=== PATIENT | female | born 1955 | race Caucasian/White ===

== ENCOUNTER 2017-04-23 10:37 | Emergency (ER) | payer OTHER ==
--- NOTE | 2017-04-23 11:13 | Emergency Department Record ---
Anxiety - General Chief Complaint: Anxiety Stated Complaint: REACTION TO MED Time Seen by Provider: 04/23/17 11:00 Source: Patient Mode of Arrival: Ambulatory Limitations: No limitations - History of Present Illness Initial Comments: The patient is here due to not feeling well for 3 days since starting Lyrica. She was placed on the Lyrica by her PCP 4 days ago for Leg Neuropathy and Fibromyalgia. The 2nd day taking it she began to feel very restless and anxious. She also has had a mild TAYLOR but no nausea, vomiting, AP, fever or visual changes. The patient did initially go over to the but was brought to the ER for anxiety. MD Complaint: Anxiety Onset/Timin -: Days(s) Associated symptoms: Diaphoresis, Headaches, Other - Related Data Home Medications: Home Medications Medication Instructions Recorded Confirmed Last Taken Budesonide/Formoterol Fumarate 2 puff IH BID puff 02/14/17 04/23/17 04/23/17 [Symbicort 160-4.5 Mcg Inhaler] Docusate Sodium [Stool Softener] 100 mg PO QD PRN cap 02/14/17 04/23/17 Losartan Potassium 25 mg PO QD tab 02/14/17 04/23/17 04/23/17 Montelukast Sodium 10 mg PO QD tab 02/14/17 04/23/17 04/23/17 Omeprazole Magnesium [Prilosec] 20 mg PO QD PRN packet 02/14/17 04/23/17 Venlafaxine HCl [Effexor Xr] 300 mg PO QD cap 02/14/17 04/23/17 04/23/17 Allergies/Adverse Reactions: Allergies Allergy/AdvReac Type Severity Reaction Status Date / Time levofloxacin [From Levaquin] Allergy Severe ALTERED Unverified 02/21/17 14:35 MENTAL STATUS Travel Screening - Travel/Exposure Within Last 30 Days Have you traveled within the last 30 days?: No - Travel/Exposure Within Last Year Have you traveled outside the [place] in the last year?: No - Additonal Travel Details Have you been exposed to anyone with a communicable illness?: No - Travel Symptoms Symptom Screening: None Review of Systems Constitutional: Denies: Chills, Fever Eyes: Denies: Eye discharge ENT: Denies: Congestion, Throat pain Respiratory: Denies: Cough, Dyspnea Past Medical History - SOCIAL HISTORY Smoking Status: Former smoker Alcohol Use: Occassional Drug Use: None - RESPIRATORY Hx Respiratory Disorders: Yes Hx Asthma: Yes - CARDIOVASCULAR Hx Cardio Disorders: Yes Hx Hypertension: Yes - NEURO Hx Neuro Disorders: Yes Hx Neuropathy: Yes - GI Hx GI Disorders: No - Hx Genitourinary Disorders: No - ENDOCRINE Hx Endocrine Disorders: Yes Hx Diabetes: Yes (2) Hx Thyroid Disease: No - MUSCULOSKELETAL Hx Musculoskeletal Disorders: Yes Hx Arthritis: Yes - PSYCH Hx Psych Problems: Yes Hx Anxiety: Yes Hx Depression: Yes - HEMATOLOGY/ONCOLOGY Hx Hematology/Oncology Disorders: No Family Medical History Any Significant Family History?: No Physical Exam - General General Appearance: Alert, Oriented x3, Cooperative, No acute distress - Head Head exam: Atraumatic, Normocephalic, Normal inspection - Eye Eye exam: Normal appearance, PERRL - ENT Throat exam: Normal inspection. negative: Tonsillar erythema, Tonsillar exudate - Neck Neck exam: Normal inspection, Full ROM. negative: Tenderness - Respiratory Respiratory exam: Normal lung sounds bilaterally. negative: Respiratory distress - Cardiovascular Cardiovascular Exam: Regular rate, Normal rhythm, Normal heart sounds - GI/Abdominal GI/Abdominal exam: Soft, Normal bowel sounds. negative: Tenderness - Extremities Extremities exam: Normal inspection, Full ROM, Normal capillary refill. negative: Tenderness - Neurological Neurological exam: Alert, Normal gait. negative: Abnormal gait, Motor sensory deficit Course Vital Signs 04/23/17 10:38 Temperature 98.1 F Pulse Rate 73 Respiratory 24 Rate Blood Pressure 159/95 Pulse Ox 95 - Reevaluation(s) Reevaluation #1: The patient is doing much better at this time. Her anxiety is 90% gone now. She denies any suicidal thoughts or feelings and would like to go home. I explained to her that we will be providing her with a single Ativan for home and she is to stop the Lyrica and see her PCP later this week. 04/23/17 12:07 Medical Decision Making - Lab Data Result diagrams: 04/23/17 11:25 04/23/17 11:25 Disposition Disposition: Discharge Clinical Impression: Anxiety Disposition: Home, Self-Care Condition: (1) Good Instructions: Social Anxiety Disorder (ED) Additional Instructions: Please stop the Lyrica and take the single Ativan pill tonight as directed. Please see your PCP later this week for recheck and return to the ER if worse. Forms: Patient Portal Access Time of Disposition: 12:09
[2017-04-23] MEDS: LORAZEPAM 0.5 MG TABLET PO ONE ×2 (11:15→12:34)
[2017-04-23 11:30] LABS: BASO % 0.3 % (0-6); EOS % 2.1 % (0-6); GRAN % 67.6 % (47-80); HEMATOCRIT 43.6 % (35.0-47.0); HEMOGLOBIN 13.8 gm/dl (11.6-16.0); LYMPH % 23.3 % (16-45); MEAN CELL VOLUME 97.1 fl (81-97); MEAN CORPUSCULAR HEMOGLOBIN 30.7 pg (27-33); MEAN CORPUSCULAR HGB CONC 31.7 g/dl (32-36); MEAN PLATELET VOLUME 9.9 fl (7.4-10.4); MONO % 6.7 % (0-9); PLATELET COUNT 241 K/uL (130-400); RED BLOOD COUNT 4.49 M/uL (3.80-5.40); RED CELL DISTRIBUTION WIDTH 12.3 % (11.5-14.5); WHITE BLOOD COUNT W/O DIFF 10.4 K/uL (4.2-12.2)
[2017-04-23 11:42] LABS: ALB/GLOB RATIO 1.3 (1.1-1.8); ALBUMIN 4.1 gm/dL (3.5-5.0); ALKALINE PHOSPHATASE 89 U/L (38-126); ALT/SGPT 48 U/L (9-52); ANION GAP 7.1 (7-16); AST/SGOT 27 U/L (14-36); BLOOD UREA NITROGEN 16 mg/dL (7-17); CARBON DIOXIDE 26.9 mmol/L (22-30); CREATININE 0.6 mg/dL (0.52-1.04); EST GLOMERULAR FILTRATION RATE > 60 ml/min; GLUCOSE,RANDOM 158 mg/dL (70-110); TOTAL PROTEIN 7.2 gm/dL (6.3-8.2)
== END 2017-04-23 12:38 | disposition home or self-care (01) ==
LOC: ER 10:37
DX: T42.6X5A Adverse effect of other antiepileptic and sedative-hypnotic drugs, initial encounter (principal); M79.7 Fibromyalgia; F41.1 Generalized anxiety disorder
CPT/HCPCS: 80053; 85025; 99283

== ENCOUNTER 2017-11-03 01:14 | Emergency (ER) | payer OTHER ==
--- NOTE | 2017-11-03 01:33 | Emergency Department Record ---
History of Present Illness - General Chief Complaint: Alcohol Intoxication Stated Complaint: INTOXICATED Source: Patient, EMS Mode of Arrival: EMS Limitations: No limitations - History of Present Illness Initial Comments: 62 yo female presents to ED for evaluation of alcohol intoxication and ingestion of a marijuana capsule. Per the patient, she called EMS as she "thought she was dying" , however reports that she is feeling fine at this time. Patient drinks alcohol and takes a marijuana pill to help her sleep, denies any thoughts of self-harm on examination. Patient denies pain, focal weakness, or recent illness. Patient reports that she did vomit prior to arrival, however reports that she is feeling find at this time. Patient reports "I think I just overdid it tonight" by drinking too much. MD Complaint: Alcohol intoxication Last Drink: Unknown Chronic Alcohol Use: Yes Associated Symptoms: Denies other symptoms - Ryan Coma Scale Eye Response: (4) Open spontaneously Motor Response: (6) Obeys commands Verbal Response: (5) Oriented [place] Total: 15 - Related Data Allergies Allergy/AdvReac Type Severity Reaction Status Date / Time levofloxacin [From Levaquin] Allergy Severe ALTERED Verified 11/03/17 01:17 MENTAL STATUS pregabalin [From Lyrica] AdvReac Severe very Verified 11/03/17 01:17 anxious pramipexole di-HCl AdvReac Altered Verified 11/03/17 01:17 [From Mirapex] mental status Travel Screening - Travel/Exposure Within Last 30 Days Have you traveled within the last 30 days?: No - Travel Symptoms Symptom Screening: None Review of Systems Constitutional: Denies: Chills, Fever, Malaise, Night sweats Eyes: Denies: Eye discharge, Eye pain ENT: Denies: Congestion, Ear pain Respiratory: Denies: Cough, Dyspnea Cardiovascular: Denies: Chest pain, Dyspnea on exertion Endocrine: Denies: Fatigue, Heat or cold intolerance Gastrointestinal: Reports: Nausea, Vomiting. Denies: Abdominal pain Genitourinary: Denies: Incontinence, Retention Musculoskeletal: Denies: Arthralgia, Back pain Skin: Denies: Bruising, Change in color Neurological: Denies: Abnormal gait, Confusion, Headache, Seizure Psychiatric: Denies: Anxiety Hematological/Lymphatic: Denies: Anemia, Blood Clots Past Medical History - SOCIAL HISTORY Smoking Status: Former smoker Alcohol Use: Heavy Drug Use: Occasional Drug Use Detail:: Marijuana - RESPIRATORY Hx Respiratory Disorders: Yes Hx Asthma: Yes - CARDIOVASCULAR Hx Cardio Disorders: Yes Hx Hypertension: Yes - NEURO Hx Neuro Disorders: Yes Hx Neuropathy: Yes - GI Hx GI Disorders: No - Hx Genitourinary Disorders: No - ENDOCRINE Hx Endocrine Disorders: Yes Hx Diabetes: Yes (2) Hx Thyroid Disease: No - MUSCULOSKELETAL Hx Musculoskeletal Disorders: Yes Hx Arthritis: Yes - PSYCH Hx Psych Problems: Yes Hx Anxiety: Yes Hx Depression: Yes - HEMATOLOGY/ONCOLOGY Hx Hematology/Oncology Disorders: No Family Medical History Any Significant Family History?: Yes Hx Diabetes: Father Hx HTN: Father Physical Exam - General General Appearance: Alert, Oriented x3, No acute distress, Other (Patient is non -cooperative with examination stating "I don't want to" to much of the examination, does appear clinically intoxicated on examination.) Limitations: No limitations - Head Head exam: Atraumatic, Normocephalic, Normal inspection Head exam detail: negative: Abrasion, Contusion, Hinkle's sign, General tenderness, Hematoma, Laceration - Eye Eye exam: Normal appearance. negative: Conjunctival injection, Periorbital swelling, Periorbital tenderness, Scleral icterus - ENT Ear exam: negative: Auricular hematoma, Auricular trauma Nasal Exam: negative: Active bleeding, Discharge, Dried blood, Foreign body Mouth exam: negative: Drooling, Laceration, Muffled voice, Tongue elevation - Neck Neck exam: Normal inspection. negative: Meningismus, Tenderness - Respiratory Respiratory exam: Normal lung sounds bilaterally. negative: Rales, Respiratory distress, Rhonchi, Stridor - Cardiovascular Cardiovascular Exam: Regular rate, Normal rhythm, Normal heart sounds - GI/Abdominal GI/Abdominal exam: Soft. negative: Rebound, Rigid, Tenderness - Rectal Rectal exam: Deferred - exam: Deferred - Extremities Extremities exam: Normal inspection. negative: Pedal edema, Tenderness - Back Back exam: Denies: CVA tenderness (R), CVA tenderness (L) - Neurological Neurological exam: Alert, CN II-XII intact, Oriented X3 - Psychiatric Psychiatric exam: Normal affect, Normal mood - Skin Skin exam: Normal color. negative: Abrasion Type of lesion: negative: abrasion Course Vital Signs 11/03/17 01:17 Temperature 98.0 F Pulse Rate 94 H Respiratory 16 Rate Blood Pressure 115/77 Pulse Ox 94 L - Reevaluation(s) Reevaluation #1: 11/03/17 01:33 Accu check 148. Patient is non-cooperative with the physical portion of the examination (LE/UE strength), however denies chest pain, abdominal pain, or focal weakness on examination. Patient's SO is at the bedside and is willing to take the patient home at this time. SO will observe the patient at home for any worsening of her symptoms. Disposition Disposition: Discharge Clinical Impression: Intoxication Disposition: Home, Self-Care Condition: (2) Stable Instructions: Alcohol Intoxication (ED) Additional Instructions: Return to ED if your symptoms worsen or if you have any concerns. Follow-up with your family doctor in 3-5 days as directed. Forms: Patient Portal Access Time of Disposition: 01:35 Quality - Quality Measures Quality Measures: N/A - Blood Pressure Screening Does Patient Have Any of the Following: No Blood Pressure Classification: Normal BP Reading Systolic Measurement: 115 Diastolic Measurement: 77 Screening for High Blood Pressure: < Normal BP, F/U Not Required > [G8783]
== END 2017-11-03 01:49 | disposition home or self-care (01) ==
LOC: ER 01:14
DX: F10.129 Alcohol abuse with intoxication, unspecified (principal); F12.90 Cannabis use, unspecified, uncomplicated; Y90.6 Blood alcohol level of 120-199 mg/100 ml; I10 Essential (primary) hypertension; E11.9 Type 2 diabetes mellitus without complications; Z87.891 Personal history of nicotine dependence
CPT/HCPCS: 36416; 82948; 99283

== ENCOUNTER 2018-04-09 13:19 | Emergency (ER) | payer MEDICARE, OTHER ==
[2018-04-09] MEDS ORDERED: LORAZEPAM 0.5 MG TABLET PO ONE (14:40)
--- NOTE | 2018-04-09 14:46 | Emergency Department Record ---
Anxiety - General Chief Complaint: Anxiety Stated Complaint: MED WITHDRAWAL SIDE EFFECTS Time Seen by Provider: 04/09/18 14:28 Source: Patient Mode of Arrival: Ambulatory Limitations: No limitations - History of Present Illness Initial Comments: pt has weaned herself off of tegretol. her last dose was 5 days ago.. she feels anxious and feels it is caused by quitting the tegratol. she was only on it for 2 wks Onset/Timin -: Days(s) Previous History of Same: No Severity: Mild Quality: Constant Improves With: Nothing Worsens With: Nothing Associated symptoms: Headaches - Related Data Home Medications: Previous Rx's Medication Instructions Recorded Lorazepam [Ativan] 0.5 mg PO TID PRN #7 tablet 04/09/18 Allergies/Adverse Reactions: Allergies Allergy/AdvReac Type Severity Reaction Status Date / Time levofloxacin [From Levaquin] Allergy Severe ALTERED Unverified 03/18/18 12:21 MENTAL STATUS divalproex sodium AdvReac Severe suicidal Unverified 03/18/18 13:02 [From Depakote] thinking gabapentin AdvReac Severe mental and Unverified 03/18/18 12:21 physical changes: felt wierd, ill, very hot, pregabalin [From Lyrica] AdvReac Severe very Unverified 03/18/18 12:21 anxious zolpidem tartrate AdvReac Severe anger, Unverified 03/18/18 12:21 [From Ambien] agitation pramipexole di-HCl AdvReac Altered Unverified 03/18/18 12:21 [From Mirapex] mental status Travel Screening - Travel/Exposure Within Last 30 Days Have you traveled within the last 30 days?: No - Travel/Exposure Within Last Year Have you traveled outside the [place] in the last year?: No - Additonal Travel Details Have you been exposed to anyone with a communicable illness?: No - Travel Symptoms Symptom Screening: None Review of Systems Reviewed: No additional complaints except as noted below Constitutional: Reports: As per HPI. Denies: Chills, Fever, Malaise, Night sweats, Weakness, Weight change Eyes: Reports: As per HPI. Denies: Eye discharge, Eye pain, Photophobia, Vision change ENT: Reports: As per HPI. Denies: Congestion, Dental pain, Ear pain, Epistaxis , Hearing loss, Throat pain Respiratory: Reports: As per HPI. Denies: Cough, Dyspnea, Hemoptysis, Stridor, Wheezes Cardiovascular: Reports: As per HPI. Denies: Arrhythmia, Chest pain, Dyspnea on exertion, Edema, Murmurs, Orthopnea, Palpitations, Paroxysmal nocturnal dyspnea, Rheumatic Fever, Syncope Endocrine: Reports: As per HPI. Denies: Fatigue, Heat or cold intolerance, Polydipsia, Polyuria Gastrointestinal: Reports: As per HPI. Denies: Abdominal pain, Constipation, Diarrhea, Hematemesis, Hematochezia, Melena, Nausea, Vomiting Genitourinary: Reports: As per HPI. Denies: Abnormal menses, Discharge, Dyspareunia, Dysuria, Frequency, Hematuria, Incontinence, Retention, Urgency Musculoskeletal: Reports: As per HPI. Denies: Arthralgia, Back pain, Gout, Joint swelling, Myalgia, Neck pain Skin: Reports: As per HPI. Denies: Bruising, Change in color, Change in hair/ nails, Lesions, Pruritus, Rash Neurological: Reports: As per HPI. Denies: Abnormal gait, Confusion, Headache, Numbness, Paresthesias, Seizure, Tingling, Tremors, Vertigo, Weakness Psychiatric: Reports: As per HPI. Denies: Anxiety, Auditory hallucinations, Depression, Homicidal thoughts, Suicidal thoughts, Visual hallucinations Hematological/Lymphatic: Reports: As per HPI. Denies: Anemia, Blood Clots, Easy bleeding, Easy bruising, Swollen glands Past Medical History - SOCIAL HISTORY Smoking Status: Former smoker Alcohol Use: Heavy Alcohol Use Comment: 3-4 glasses nightly. Stopped last week. Drug Use: None - RESPIRATORY Hx Respiratory Disorders: Yes Hx Asthma: Yes Hx COPD: Yes - CARDIOVASCULAR Hx Cardio Disorders: Yes Hx Hypertension: Yes - NEURO Hx Neuro Disorders: Yes Hx Neuropathy: Yes - GI Hx GI Disorders: No - Hx Genitourinary Disorders: No - ENDOCRINE Hx Endocrine Disorders: Yes Hx Diabetes: Yes (2) Hx Thyroid Disease: No - MUSCULOSKELETAL Hx Musculoskeletal Disorders: Yes Hx Arthritis: Yes - PSYCH Hx Psych Problems: Yes Hx Anxiety: Yes Hx Depression: Yes - HEMATOLOGY/ONCOLOGY Hx Hematology/Oncology Disorders: No Family Medical History Any Significant Family History?: No Hx Diabetes: Father Hx HTN: Father Physical Exam - General General Appearance: Alert, Oriented x3, Cooperative, Mild distress - Head Head exam: Normal inspection - Eye Eye exam: Normal appearance, PERRL, EOMI Pupils: Normal accommodation - ENT ENT exam: Normal exam, Mucous membranes moist, Normal external ear exam, Normal orophraynx Ear exam: Normal external inspection. negative: External canal tenderness Nasal Exam: Normal inspection. negative: Discharge, Sinus tenderness Mouth exam: Normal external inspection, Tongue normal Teeth exam: Normal inspection. negative: Dental caries Throat exam: Normal inspection. negative: Tonsillar erythema, Tonsillar exudate - Neck Neck exam: Normal inspection, Full ROM. negative: Tenderness - Respiratory Respiratory exam: Normal lung sounds bilaterally. negative: Respiratory distress - Cardiovascular Cardiovascular Exam: Regular rate, Normal rhythm, Normal heart sounds - GI/Abdominal GI/Abdominal exam: Soft, Normal bowel sounds. negative: Tenderness - Rectal Rectal exam: Deferred - exam: Deferred - Extremities Extremities exam: Normal inspection, Full ROM, Normal capillary refill. negative: Tenderness - Back Back exam: Reports: Normal inspection, Full ROM. Denies: Muscle spasm, Rash noted, Tenderness - Neurological Neurological exam: Alert, CN II-XII intact, Normal gait, Oriented X3 - Psychiatric Psychiatric exam: Normal affect, Normal mood - Skin Skin exam: Dry, Intact, Normal color, Warm Course Vital Signs 04/09/18 14:07 Temperature 98.3 F Pulse Rate 85 Respiratory 18 Rate Blood Pressure 125/74 Pulse Ox 98 Disposition Disposition: Discharge Clinical Impression: Anxiety Medication reaction Qualifiers: Encounter type: initial encounter Qualified Code(s): T88.7XXA - Unspecified adverse effect of drug or medicament, initial encounter Disposition: Home, Self-Care Condition: (1) Good Instructions: Anxiety (ED) Additional Instructions: follow up with family doctor. return sooner if worse Prescriptions: Lorazepam [Ativan] 0.5 mg PO TID PRN #7 tablet PRN Reason: Anxiety Quality - Quality Measures Quality Measures: N/A - Blood Pressure Screening Does Patient Have Any of the Following: No Blood Pressure Classification: Pre-Hypertensive BP Reading Systolic Measurement: 125 Diastolic Measurement: 74 Screening for High Blood Pressure: < Pre-Hypertensive BP, F/U Documented > [ G8950] Pre-Hypertensive Follow-up Interventions: Follow-up with rescreen every year.
== END 2018-04-09 14:59 | disposition home or self-care (01) ==
LOC: ER 13:19
DX: F13.239 Sedative, hypnotic or anxiolytic dependence with withdrawal, unspecified (principal); F41.9 Anxiety disorder, unspecified; T42.6X5A Adverse effect of other antiepileptic and sedative-hypnotic drugs, initial encounter; R51 Headache; E11.9 Type 2 diabetes mellitus without complications; I10 Essential (primary) hypertension; J44.9 Chronic obstructive pulmonary disease, unspecified; Z87.891 Personal history of nicotine dependence
CPT/HCPCS: 99282

== ENCOUNTER 2019-05-05 10:40 | Emergency (ER) | payer MEDICARE, OTHER ==
--- NOTE | 2019-05-05 11:19 | Emergency Department Record ---
History of Present Illness - General Chief Complaint: Laceration(s) Stated Complaint: FINGER LACERATION Time Seen by Provider: 05/05/19 11:01 Source: Patient Mode of Arrival: Ambulatory Limitations: No limitations - History of Present Illness Initial Commments: The patient cut her L 3rd finger with a box shook patcher a half hour ago. She states her Td is UTD and she denies any numbness or weakness. Onset/Timin -: Minutes(s) Place: Outdoors Context: Sharp object use Associated Symptoms: Pain Treatments Prior to Arrival: Bandage - Related Data Hx Tetanus Toxoid Vaccination: Yes Allergies Allergy/AdvReac Type Severity Reaction Status Date / Time levofloxacin [From Levaquin] Allergy Severe ALTERED Unverified 04/17/19 09:03 MENTAL STATUS divalproex sodium AdvReac Severe suicidal Unverified 04/17/19 09:03 [From Depakote] thinking gabapentin AdvReac Severe mental and Unverified 04/17/19 09:03 physical changes: felt wierd, ill, very hot, pregabalin [From Lyrica] AdvReac Severe very Unverified 04/17/19 09:03 anxious zolpidem tartrate AdvReac Severe anger, Unverified 04/17/19 09:03 [From Ambien] agitation carbamazepine [From Tegretol] AdvReac Intermediate increased Unverified 04/17/19 09:03 anxiety pramipexole di-HCl AdvReac Altered Unverified 04/17/19 09:03 [From Mirapex] mental status Travel Screening - Travel/Exposure Within Last 30 Days Have you traveled within the last 30 days?: No Review of Systems Constitutional: Denies: Chills, Fever Past Medical History - SOCIAL HISTORY Smoking Status: Former smoker - RESPIRATORY Hx Respiratory Disorders: Yes Hx Asthma: Yes Hx COPD: Yes - CARDIOVASCULAR Hx Cardio Disorders: Yes Hx Hypertension: Yes - NEURO Hx Neuro Disorders: Yes Hx Neuropathy: Yes - GI Hx GI Disorders: No - Hx Genitourinary Disorders: No - ENDOCRINE Hx Endocrine Disorders: Yes Hx Diabetes: Yes (2) Hx Thyroid Disease: No - MUSCULOSKELETAL Hx Musculoskeletal Disorders: Yes Hx Arthritis: Yes - PSYCH Hx Psych Problems: Yes Hx Anxiety: Yes Hx Depression: Yes - HEMATOLOGY/ONCOLOGY Hx Hematology/Oncology Disorders: No Family Medical History Any Significant Family History?: Yes Hx Diabetes: Father Hx HTN: Father Physical Exam - General General Appearance: Alert, Cooperative - Head Head exam: Atraumatic - Extremities Extremities exam: negative: Normal inspection (There is a very superficial lac to the dorsal L 3rd finger just distal to the DIP joint. There is no pain with finger extension and no weakness. ) Course Vital Signs 05/05/19 10:49 Temperature 99.1 F Pulse Rate 91 H Respiratory 18 Rate Blood Pressure 162/88 Pulse Ox 97 - Reevaluation(s) Reevaluation #1: Procedure note: The L 3rd finger superficial lac was cleansed with betadine and sterile saline. A single steri strip was used for closure. There were no complications. 05/05/19 11:17 Disposition Disposition: Discharge Clinical Impression: Laceration of finger Qualifiers: Encounter type: initial encounter Finger: middle finger Damage to nail status: without damage Foreign body presence: without foreign body Laterality: left Qualified Code(s): S61.213A - Laceration without foreign body of left middle finger without damage to nail, initial encounter Disposition: Home, Self-Care Condition: (2) Stable Instructions: Laceration (ED) Additional Instructions: Keep dry for 2 days then no soaking or swimming. Take the strips off in a week if they do not fall off. Return to the ER for any problems or pain. Forms: Patient Portal Access Time of Disposition: 11:19 Quality - Quality Measures Quality Measures: N/A - Blood Pressure Screening View Details: Yes Does Patient Have Any of the Following: No Blood Pressure Classification: Pre-Hypertensive BP Reading Systolic Measurement: 162 Diastolic Measurement: 88 Screening for High Blood Pressure: < Pre-Hypertensive BP, F/U Documented > [G8950] Pre-Hypertensive Follow-up Interventions: Referral to alternative/primary care provider.
== END 2019-05-05 11:29 | disposition home or self-care (01) ==
LOC: ER 10:40
DX: S61.213A Laceration without foreign body of left middle finger without damage to nail, initial encounter (principal); W27.8XXA Contact with other nonpowered hand tool, initial encounter; Y92.219 Unspecified school as the place of occurrence of the external cause; Y99.0 Civilian activity done for income or pay; I10 Essential (primary) hypertension; Z87.891 Personal history of nicotine dependence
CPT/HCPCS: 99282